=== PATIENT | female | born 1960 | race Caucasian/White ===

== ENCOUNTER → 2016-06-05 | Outpatient (CLI) | payer OTHER ==
--- NOTE | ~2016-06-05 | TH ---
Unit #: [id number] #: [id number] Patient: TREVOR SULLIVAN [id number] [address] [place], [place] [address] [id number] MR#: [id number] NAME: TREVOR SULLIVAN. : 1960 SEX: F STUDY DATE/TIME: UNIT: [facility] ROOM: STUDY DESCRIPTION: Imaging and ECG Attending Physician: Madhu Echols M.D. Referring Physician: Madhu Echols M.D. Primary Care Physician: Madhu Echols M.D. CARDIOLOGY REPORT EXAM Stress nuclear and ECG INDICATION Dyspnea on exertion, atrial fibrillation, preoperative knee surgery. SUMMARY Patient received Lexiscan intravenously at rest as well as technetium-99m Cardiolite, 11.3 and 33.0 mCi, at rest and stress respectively. Appropriate views were obtained. FINDINGS The resting ECG shows T-wave inversion in aVL. With stress there was pseudonormalization of the T waves in aVL. Otherwise there are no significant dysrhythmias, no heart block. The heart rate increases from 64 with blood pressure at 162/67 at rest, to a peak heart rate of 118 and blood pressure 138/75. There were no diagnostic ECG changes. Perfusion images demonstrate no perfusion defects at rest or stress. There was chest wall attenuation artifact noted. Gated perfusion wall motion analysis demonstrates end-diastolic volume 73 mL, normal wall motion, and ejection fraction 58%. Planar images demonstrate breast attenuation artifact. There is no significant patient motion either at rest or stress. RV appears upper limits of normal in size. LV is normal in size. There is no increase in lung uptake. Summed stress score is 6, summed difference score is 5. Changes involve primarily border detection at the base. IMPRESSION 1. Myocardial perfusion scan shows no ischemia or infarction. 2. Normal wall motion with normal ejection fraction. 3. Normal Lexiscan stress ECG. 4. Based on these findings, the patient will be considered at low risk for cardiac complication from noncardiac surgery. Dictated by... Jeremiah Pian M.D. PJR/cf Unit #: [id number] #: [id number] Patient: TREVOR SULLIVAN TD: 06/05/2016 18:06 JOB #: [id number] CARDIOLOGY REPORT X Jeremiah Pian MD CARDIOLOGY REPORT
== END | disposition home or self-care (01) ==
LOC: CNUC 08:36
DX: R06.02 Shortness of breath (principal)
CPT/HCPCS: 78452; 93017; A9500; J2785